=== PATIENT | female | born 1975 | race Caucasian/White ===

== ENCOUNTER → 2019-01-29 16:26 | Outpatient (CLI) | payer BC, SELFPAY ==
--- NOTE | 2019-01-29 | DI.MG.S_ITS ---
BILATERAL DIGITAL SCREENING MAMMOGRAM 3D/2D WITH CAD: 01/29/2019 CLINICAL: Routine screening. Baseline exam. No prior exams were available for comparison. The tissue of both breasts is heterogeneously dense. This may lower the sensitivity of mammography. Current study was also evaluated with a Computer Aided Detection (CAD) system. There is 1.5 cm oval equal density focal asymmetry with an obscured margin in the left breast at 1 o'clock middle depth. No other significant masses, calcifications, or other findings are seen in either breast. IMPRESSION: INCOMPLETE: NEEDS ADDITIONAL IMAGING EVALUATION The 1.5 cm oval equal density focal asymmetry in the left breast is indeterminate. Additional views with possible ultrasound are recommended. This exam was interpreted at Station ID: [id number]. NOTE: For mammograms, a report in lay terms will be sent to the patient. Approximately 15% of breast malignancies will not be visualized mammographically. In the management of a palpable breast mass, a negative mammogram must not discourage biopsy of a clinically suspicious lesion. Electronically Signed By: Kaz webery/:01/29/2019 17:51:28 letter sent: Additional Imaging Needed ACR BI-RADS Category 0: Incomplete [id number]
== END ==
PROVIDERS: Visit Provider Naturopath
DX: Z12.31 Encounter for screening mammogram for malignant neoplasm of breast (principal)
CPT/HCPCS: 77063; 77067

== ENCOUNTER → 2019-02-12 13:22 | Outpatient (CLI) | payer BC, SELFPAY ==
--- NOTE | 2019-02-12 | DI.MG.S_ITS ---
UNILATERAL LEFT DIGITAL DIAGNOSTIC MAMMOGRAM 3D/2D WITH ADDITIONAL VIEWS: 02/12/2019 CLINICAL: Additional evaluation requested from prior study. Comparison is made to exam dated: 01/29/2019 [facility]. The tissue of left breast is heterogeneously dense. This may lower the sensitivity of mammography. Previously identified 1.5 cm oval equal density focal asymmetry with an obscured margin in the left breast at 1 o'clock middle depth seen on comparison screening mammograms of 01/29/19 persists with additional views, but demonstrates a more circumscribed margin, localizes to posterior depth, and measures between 1.5-2.0 cm on additional diagnostic views performed today 02/12/19. IMPRESSION: INCOMPLETE: NEEDS ADDITIONAL IMAGING EVALUATION Previously identified 1.5 cm oval equal density focal asymmetry with an obscured margin in the left breast at 1 o'clock middle depth seen on comparison screening mammograms of 01/29/19 persists with additional views, but demonstrates a more circumscribed margin, localizes to posterior depth, and measures between 1.5-2.0 cm on additional diagnostic views performed today 02/12/19. A targeted ultrasound is recommended for further evaluation, and will be performed immediately following this exam. This exam was interpreted at Station ID: [id number]. NOTE: For mammograms, a report in lay terms will be sent to the patient. Approximately 15% of breast malignancies will not be visualized mammographically. In the management of a palpable breast mass, a negative mammogram must not discourage biopsy of a clinically suspicious lesion. Electronically Signed By: Parth Romero M.D. ecl/:02/12/2019 14:28:11 ACR BI-RADS Category 0: Incomplete [id number]
--- NOTE | 2019-02-12 | DI.US.S_ITS ---
LIMITED ULTRASOUND OF LEFT BREAST AND AXILLA: 02/12/2019 CLINICAL: Additional evaluation requested from prior study. Comparison is made to exams dated: 02/12/2019 mammogram and 01/29/2019 mammogram - [facility]. Color flow and real-time ultrasound of the left breast 1-2 o'clock, and axilla regions were performed on the areas of interest. White scale images of the real-time examination were reviewed. There is a 2.0 x 0.8 x 1.7 cm oval hypoechoic mass with indistinct margin in the left breast at 1:00 position 4 cm from the nipple which demonstrates internal and adjacent vascularity on Doppler ultrasound. This appears to correlate with findings seen on comparison mammography. Targeted ultrasound of the left axilla demonstrates no left axillary lymphadenopathy. IMPRESSION: SUSPICIOUS OF MALIGNANCY 1) 2.0 x 1.7 x 0.8 cm oval mass in the left breast at 1:00 position 4 cm from the nipple may representing fibroadenoma and is at low suspicion for malignancy. An ultrasound-guided biopsy is recommended. 2) No ultrasound evidence of left axillary lymphadenopathy. These results and recommendations were discussed with the patient at the time of the exam by the [facility] Radiologist Dr. Massimo Cardoso in person. Patient informed Dr. Cardoso that she will discuss these findings and recommendations with her referring provider and is undecided on whether she is willing to undergo biopsy of this finding at this time. This exam was interpreted at Station ID: [id number]. Electronically Signed By: Parth Romero M.D. ecl/:02/12/2019 17:02:34 letter sent: Biopsy Required Ultrasound BI-RADS: 4a Suspicious abnormality - low suspicion for malignancy
== END ==
PROVIDERS: Visit Provider Naturopath
DX: R92.8 Other abnormal and inconclusive findings on diagnostic imaging of breast (principal); N63.21 Unspecified lump in the left breast, upper outer quadrant
CPT/HCPCS: 76642; 77065; G0279